=== PATIENT | male | born 1955 | race Caucasian/White ===

== ENCOUNTER 2020-12-23 19:56 | Inpatient (IN) ==
[2020-12-23] MEDS ORDERED: FUROSEMIDE 40 MG/4 ML VIAL IV ONE (20:11)
[2020-12-23] MEDS ORDERED: methylPREDNISolone SOD SUCC 125 MG/2 ML VIAL IV ONE (20:11)
[2020-12-23] MEDS ORDERED: IPRATROPIUM/ALBUTEROL 3 ML AMPUL.NEB NEB ONE (20:11)
--- NOTE | 2020-12-23 20:42 | Emergency Department Note ---
SOB HPI General Chief Complaint: Shortness of Breath/Dyspnea Stated Complaint: shortness of breath Time Seen by Provider: 12/23/20 20:11 Source: patient and EMS Mode of arrival: EMS Limitations: no limitations History of Present Illness HPI Narrative: 65-year-old male arrives by EMS for evaluation of shortness of br eath. Patient has a history of COPD this is a patient's third visit to the emergency department via EMS for increasing shortness of breath. Patient has symptoms including shortness of breath wheezing which are much worse with exertion. No fevers no chills no chest pain. Patient still smoke cigarettes. Patient is not on oxygen at home. On the last 2 visits admission to the hospital was not recommended and the patient declined. Part of the declining to admission was no bed availability here at [facility] and only hospital available for transfer was in [place]. Patient also has significant anxiety related to the shortness of breath. No fevers no chills. Related Data Home Medications Medication Instructions Recorded Confirmed cyanocobalamin (vitamin B-12) 1,000 mcg IM QMONTH 05/26/16 05/27/20 1,000 mcg/mL injection solution aspirin 81 mg tablet,delayed 81 mg PO QDAY 09/21/17 09/24/20 release albuterol sulfate 1.25 mg/3 mL 1.25 mg INHALATION TID ml 09/24/20 09/24/20 solution for nebulization benzonatate 100 mg capsule 100 mg PO TID PRN 09/24/20 09/24/20 dextromethorphan-guaifenesin ER 60 1 tab PO BID tab 09/24/20 09/24/20 mg-1,200 mg tab,extend release,12hr fluticasone furoate 200 1 inh INHALATION QDAY 09/24/20 09/24/20 mcg-vilanterol 25 mcg/dose inhalation powder hydrochlorothiazide 12.5 mg capsule 12.5 mg PO QDAY 09/24/20 09/24/20 losartan 50 mg tablet 50 mg PO QDAY 09/24/20 09/24/20 mecobalamin (vitamin B12) 1,000 1,000 mcg SUBLINGUAL QDAY 09/24/20 09/24/20 mcg disintegrating tablet,sublingual nystatin 100,000 unit/mL oral 5 ml PO TID ml 09/24/20 09/24/20 suspension Previous Rx's Medication Instructions Recorded losartan 50 mg-hydrochlorothiazide 1 tab PO QDAY #60 tab 12/10/17 12.5 mg tablet tiotropium bromide 18 mcg capsule 1 cap INHALATION QDAY #90 puff 12/10/17 with inhalation device pravastatin 10 mg tablet 10 mg PO QDAY #60 tab 12/29/17 fluticasone furoate 100 1 inh INHALATION QDAY #60 each 01/17/18 mcg-vilanterol 25 mcg/dose inhalation powder bupropion HCl 150 mg 24 hr tablet, 150 mg PO QAM #90 tab 01/18/18 extended release albuterol sulfate 90 mcg/actuation 2 puff INHALATION .q4-6h PRN #8.5 g 05/27/20 aerosol inhaler doxycycline hyclate 100 mg PO BID #14 tab 12/22/20 prednisone 20 mg PO BID #10 tab 12/22/20 Allergies Allergy/AdvReac Type Severity Reaction Status Date / Time No Known Drug Allergies Allergy Verified 12/23/20 20:05 Review of Systems ROS ROS Narrative: Narrative: All systems ED: reviewed and negative except as stated. Constitutional: Denies fever, chills and sweats Eyes: Denies vision change ENT ED: Denies throat pain and congestion Cardiovascular: Denies chest pain Respiratory: Reports shortness of breath, cough and wheezes Gastrointestinal: Denies abdominal pain, vomiting and diarrhea Genitourinary: Denies dysuria, frequency, urgency and hematuria Musculoskeletal: Denies back pain and joint pain Integumentary: Denies rash Neurological: Denies headache and dizziness Psychiatric: Reports anxiety Endocrine: Denies polydipsia and polyuria Hematological/Lymphatic: Denies easy bleeding and easy bruising PFSH Narrative Patient History Narrative: Narrative: Medical/Surgical/Family History All Active Problems History of cancer metastatic to brain (Acute) Accident due to mechanical fall without injury (Acute) Contusion of knee, left (Acute) Contusion of elbow, right (Acute) Acute exacerbation of chronic obstructive pulmonary disease (Acute) Acute exacerbation of chronic obstructive pulmonary disease (Acute) History of bilateral cataract extraction (Chronic) Chronic low back pain (Chronic) Multiple nodules of lung (Chronic) Peripheral nerve disease (Chronic) KOBI (obstructive sleep apnea) (Chronic) Nicotine dependence (Chronic) Recurrent major depression (Chronic) Hyperlipidemia (Chronic) Disorder of vitamin B12 (Chronic) Hypogonadism (Chronic) COPD (chronic obstructive pulmonary disease) (Chronic) Chronic shortness of breath (Acute) Encounter for medication refill (Acute) Depression (Chronic) Non-occlusive coronary artery disease (Acute) Lung nodule (Acute) Vitamin B12 deficiency (Acute) History of total left knee replacement (Chronic) Essential hypertension (Chronic) Obesity (Chronic) Tobacco abuse (Chronic) Osteoarthritis of left knee (Chronic) Testicular hypofunction (Chronic) Cataract (Chronic) Carpal tunnel syndrome (Chronic) Medical History Cataract Chronic low back pain Chronic shortness of breath COPD (chronic obstructive pulmonary disease) Disorder of vitamin B12 Encounter for medication refill Essential hypertension Hyperlipidemia Hypogonadism Multiple nodules of lung Nicotine dependence Obesity KOBI (obstructive sleep apnea) Osteoarthritis of left knee Peripheral nerve disease Recurrent major depression Testicular hypofunction Tobacco abuse Surgical History Carpal tunnel syndrome Bilateral Surgery Deficient knowledge of leg surgery Broke femur when he was a child. Had to put back together History of bilateral cataract extraction History of total left knee replacement August 22, 2015 Presence of left artificial knee joint Family History Other No pertinent family history Social History Smoking Status: Current every day smoker Alcohol Intake Frequency: a few times a month Substance Use: does not use Exam Narrative Narrative: Vital Signs reviewed. Constitutional: Obese, mild respiratory distress Head: Normocephalic, atraumatic Eyes: PERRLA, EOMI, no conjunctivitis Ear: Normal canals and TM's Oropharynx: moist oral mucosa, no edema, no erythema, no exudate Neck: Supple, no lymphadenopathy, no JVD Lungs: Hypnic, mildly labored, diminished breath sounds wheezes bilaterally, prolonged expiratory phase Cardiac: Tachycardic, regular rhythm, normal distal pulses, GI: Soft nontender nondistended no guarding no rebound Musculoskeletal: No tenderness, no deformities, no edema, full range of motion Back: no CVA or midline tenderness Neuro: Awake alert, cranial nerves II through XII grossly intact, no focal motor or sensory deficits Psychiatric: Normal mood and affect Skin: Warm dry no rash, cap refill less than 2 seconds General Limitations: no limitations Course Vital Signs Vital signs: Vital Signs Temperature 98.7 F 12/23/20 19:58 Pulse Rate 140 H 12/23/20 19:58 Respiratory Rate 24 H 12/23/20 19:58 Blood Pressure 173/104 12/23/20 19:58 Pulse Oximetry (%) 85 L 12/23/20 19:58 Temperature 98.7 F 12/23/20 19:58 Pulse Rate 94 H 12/23/20 23:53 Respiratory Rate 12 12/24/20 04:01 Blood Pressure 109/93 12/24/20 04:16 Pulse Oximetry (%) 96 12/23/20 23:53 [facility] MDM Narrative Medical decision making narrative: 65-year-old male returns to the emergency department for third visit in 3 nights for shortness of breath. Patient has history of COPD still smokes. Chest x-ray shows no acute process. EKG shows sinus tachycardia with no acute ischemic changes. White blood cell count elevated 18.9. Patient has had several doses of Solu-Medrol the last several days. Hemoglobin 14.7 platelets 267. Metabolic panel notable fsodium 131 chloride 91 otherwise unremarkable. Troponin negative. Recommended patient be admitted for COPD exacerbation on the last 2 visits yesterday unsuccessful as the patient did not want to be transferred to a distant hospital and there are no beds available. Patient is improved but once again has significant dyspnea with even limited exertion did admission. There are no beds available tonight at [facility]. There may be beds available in the morning and the patient will be observed in the emergency department prior to determining disposition. If no beds are available in the morning the patient would benefit from a transfer to an accepting facility for further treatment of the COPD exacerbation. Case discussed and [facility] pending disposition. Differential Diagnosis Differential Diagnosis: COPD CHF pneumonia Lab Data Result diagrams: 12/23/20 20:30 12/23/20 20:30 Labs: Lab Results 12/23/20 12/23/20 12/23/20 Range/Units 20:30 20:30 20:30 WBC 18.9 H (4.5-11.0) K/mcL RBC 4.55 L (4.63-6.08) M/mcL Hgb 14.7 (13.7-17.5) g/dL Hct 42.0 (40.1-51.0) % MCV 92.3 (80.0-100.0) fL MCH 32.3 (26.0-34.0) pg MCHC 35.0 (31.0-36.0) g/dL RDW 14.8 H (11.5-14.5) % Plt Count 264 (140-440) K/mcL MPV 8.6 (7.4-10.4) fL Seg Neutrophils % 84 H (38-78) % Lymphocytes % 14 L (15-49) % Monocytes % (Manual) 2 (1-12) % Platelet Estimate Normal (Normal) RBC Morphology Normal (Normal) Sodium 131 L (133-145) mmol/L Potassium 4.3 (3.3-5.1) mmol/L Chloride 91 L (96-108) mmol/L Carbon Dioxide 29 (22-30) mmol/L Anion Gap 11.0 (8.0-16.0) BUN 18 (8-23) mg/dL Creatinine 0.9 (0.7-1.2) mg/dL GFR Calculation 90 Glucose 99 (70-105) mg/dL Calcium 9.4 (8.6-10.4) mg/dL Total Bilirubin 0.7 (0.1-1.0) mg/dL AST 42 H (<40) U/L ALT 51 H (<40) U/L Alkaline Phosphatase 91 (39-117) U/L Troponin T 0.02 (<0.03) ng/mL NT-Pro-B Natriuret Pep 402.4 H (<125.0) pg/mL Total Protein 7.1 (5.9-8.4) gm/dL Albumin 4.0 (3.2-5.2) gm/dL Globulin 3.1 (2.2-3.7) gm/dL Albumin/Globulin Ratio 1.3 (1.0-2.3) EKG Data EKG #1: EKG attestation: Yes I reviewed and interpreted this EKG. and Yes There are no EKG findings of acute coronary syndrome EKG results narrative: EKG performed at 2028 shows sinus tachycardia rate of 113 normal axis right bundle branch block nonspecific ST changes Discharge Plan Patient/Caregiver Discharge Instructions Pt seen by [employer]/PA only: No Clinical Impression: Acute exacerbation of chronic obstructive pulmonary disease, Tobacco abuse Patient Disposition: Still a Patient Condition: Fair Follow up with: Mustapha Farrell MD [Primary Care Provider] - Prescriptions: No Action tiotropium bromide [Spiriva with HandiHaler] 18 mcg capsule, w/inhalation device 1 cap INHALATION QDAY Qty: 90 RF: 3 losartan-hydrochlorothiazide 50-12.5 mg tablet 1 tab PO QDAY Qty: 60 RF: 2 fluticasone furoate-vilanterol [Breo Ellipta] 100-25 mcg/dose blister with device 1 inh INHALATION QDAY Qty: 60 RF: 3 bupropion HCl [Wellbutrin XL] 150 mg tablet extended release 24 hr 150 mg PO QAM Qty: 90 RF: 1 pravastatin 10 mg tablet 10 mg PO QDAY Qty: 60 RF: 3 albuterol sulfate 1.25 mg/3 mL solution for nebulization 1.25 mg inhalation TID RF: 0 mecobalamin (vitamin B12) 1,000 mcg tablet,disintegrating 1,000 mcg sublingual QDAY RF: 0 Breo Ellipta 200-25 mcg/dose blister with device 1 inh inhalation QDAY RF: 0 hydrochlorothiazide 12.5 mg capsule 12.5 mg PO QDAY RF: 0 losartan 50 mg tablet 50 mg PO QDAY RF: 0 dextromethorphan-guaifenesin [Mucinex DM] 60-1,200 mg tablet extended release 12 hr 1 tab PO BID RF: 0 nystatin 100,000 unit/mL suspension 5 ml PO TID RF: 0 benzonatate [Tessalon Perles] 100 mg capsule 100 mg PO TID PRNRF: 0 cyanocobalamin (vitamin B-12) 1,000 mcg/mL solution 1,000 mcg IM QMONTH RF: 0 aspirin 81 mg tablet,delayed release (DR/EC) 81 mg PO QDAY RF: 0 albuterol sulfate [ProAir HFA] 90 mcg/actuation HFA aerosol inhaler 2 puff INHALATION .q4-6h PRN (Reason: cough, shortness of breath, wheezing) Qty: 8.5 RF: 1 prednisone 20 mg tablet 20 mg PO BID Qty: 10 RF: 0 doxycycline hyclate 100 mg tablet 100 mg PO BID Qty: 14 RF: 0
[2020-12-23 22:05] LABS: Hemoglobin 14.7 g/dL (13.7-17.5); Mean Cell Volume 92.3 fL (80.0-100.0); Mean Platelet Volume 8.6 fL (7.4-10.4); Platelet Count 264 K/mcL (140-440); RBC 4.55 M/mcL (4.63-6.08); Red Cell Distribution Width 14.8 % (11.5-14.5); WBC 18.9 K/mcL (4.5-11.0)
[2020-12-23 22:59] LABS: proBNP 402.4 pg/mL (<125.0)
[2020-12-23 23:01] LABS: ALT/SGPT 51 U/L (<40); AST/SGOT 42 U/L (<40); Albumin/Globulin Ratio 1.3 (1.0-2.3); Alkaline Phosphatase 91 U/L (39-117); Bilirubin,Total 0.7 mg/dL (0.1-1.0); Blood Urea Nitrogen 18 mg/dL (8-23); Calcium 9.4 mg/dL (8.6-10.4); Carbon Dioxide 29 mmol/L (22-30); Chloride 91 mmol/L (96-108); Globulin 3.1 gm/dL (2.2-3.7); Glomerular Filtration Rate 90; Glucose 99 mg/dL (70-105)
[2020-12-23 23:07] LABS: Lymphocytes % 14 % (15-49); Monocytes % (Manual) 2 % (1-12); Platelet Estimate NORMAL (Normal); RBC Morphology NORMAL (Normal); Segmented Neutrophils % 84 % (38-78)
--- NOTE | 2020-12-24 02:08 | XRay Report ---
CLINICAL INFORMATION: dyspnea COMPARISON: 12/23/2020 FINDINGS: Mild cardiomegaly is unchanged. Mediastinum show mild widening superiorly but this is stable and presumably represents mediastinal fat. Minimal bibasilar atelectasis noted IMPRESSION: Mild cardiomegaly and minimal bibasilar atelectasis. Interpreted and Authenticated by: Isidro Bhandari 12/24/20
--- NOTE | 2020-12-24 09:28 | Emergency Department Note ---
Course Vital Signs Vital signs: Vital Signs Temperature 98.7 F 12/23/20 19:58 Pulse Rate 140 H 12/23/20 19:58 Respiratory Rate 24 H 12/23/20 19:58 Blood Pressure 173/104 12/23/20 19:58 Pulse Oximetry (%) 85 L 12/23/20 19:58 Temperature 98.7 F 12/23/20 19:58 Pulse Rate 77 12/24/20 14:00 Respiratory Rate 12 12/24/20 13:00 Blood Pressure 135/115 12/24/20 14:00 Pulse Oximetry (%) 100 12/24/20 14:00 MDM MDM Narrative Medical decision making narrative: I assumed care from Dr. Hogue at the change of shift. I evaluated the patient in person at 9:20 AM. He is resting comfortably and awakens to verbal stimuli. He reports continued shortness of breath. He is able to speak in full sentences while on supplemental oxygen via nasal cannula but does have some increased work of breathing after prolonged conversation. I informed him of the continued search for an inpatient bed. A bed became available at our hospital. I discussed the patient's history examination and diagnostic findings with Dr. Goyal who accepted admission to his service. Lab Data Lab results reviewed: Yes I reviewed the patient's lab results. Result diagrams: 12/23/20 20:30 12/23/20 20:30 Labs: Lab Results 12/23/20 12/23/20 12/23/20 Range/Units 20:30 20:30 20:30 WBC 18.9 H (4.5-11.0) K/mcL RBC 4.55 L (4.63-6.08) M/mcL Hgb 14.7 (13.7-17.5) g/dL Hct 42.0 (40.1-51.0) % MCV 92.3 (80.0-100.0) fL MCH 32.3 (26.0-34.0) pg MCHC 35.0 (31.0-36.0) g/dL RDW 14.8 H (11.5-14.5) % Plt Count 264 (140-440) K/mcL MPV 8.6 (7.4-10.4) fL Seg Neutrophils % 84 H (38-78) % Lymphocytes % 14 L (15-49) % Monocytes % (Manual) 2 (1-12) % Platelet Estimate Normal (Normal) RBC Morphology Normal (Normal) Sodium 131 L (133-145) mmol/L Potassium 4.3 (3.3-5.1) mmol/L Chloride 91 L (96-108) mmol/L Carbon Dioxide 29 (22-30) mmol/L Anion Gap 11.0 (8.0-16.0) BUN 18 (8-23) mg/dL Creatinine 0.9 (0.7-1.2) mg/dL GFR Calculation 90 Glucose 99 (70-105) mg/dL Calcium 9.4 (8.6-10.4) mg/dL Total Bilirubin 0.7 (0.1-1.0) mg/dL AST 42 H (<40) U/L ALT 51 H (<40) U/L Alkaline Phosphatase 91 (39-117) U/L Troponin T 0.02 (<0.03) ng/mL NT-Pro-B Natriuret Pep 402.4 H (<125.0) pg/mL Total Protein 7.1 (5.9-8.4) gm/dL Albumin 4.0 (3.2-5.2) gm/dL Globulin 3.1 (2.2-3.7) gm/dL Albumin/Globulin Ratio 1.3 (1.0-2.3) ED POC Tests ED POC Tests: CARLIE - SARS Antigen Negative Discharge Plan Patient/Caregiver Discharge Instructions Pt seen by [employer]/PA only: No Clinical Impression: Acute exacerbation of chronic obstructive pulmonary disease, Tobacco abuse Patient Disposition: Xfer As Inpt ([facility]) Condition: Fair Follow up with: Mustapha Farrell MD [Primary Care Provider] - Prescriptions: No Action tiotropium bromide [Spiriva with HandiHaler] 18 mcg capsule, w/inhalation device 1 cap INHALATION QDAY Qty: 90 RF: 3 losartan-hydrochlorothiazide 50-12.5 mg tablet 1 tab PO QDAY Qty: 60 RF: 2 fluticasone furoate-vilanterol [Breo Ellipta] 100-25 mcg/dose blister with device 1 inh INHALATION QDAY Qty: 60 RF: 3 bupropion HCl [Wellbutrin XL] 150 mg tablet extended release 24 hr 150 mg PO QAM Qty: 90 RF: 1 pravastatin 10 mg tablet 10 mg PO QDAY Qty: 60 RF: 3 albuterol sulfate 1.25 mg/3 mL solution for nebulization 1.25 mg inhalation TID RF: 0 mecobalamin (vitamin B12) 1,000 mcg tablet,disintegrating 1,000 mcg sublingual QDAY RF: 0 Breo Ellipta 200-25 mcg/dose blister with device 1 inh inhalation QDAY RF: 0 hydrochlorothiazide 12.5 mg capsule 12.5 mg PO QDAY RF: 0 losartan 50 mg tablet 50 mg PO QDAY RF: 0 dextromethorphan-guaifenesin [Mucinex DM] 60-1,200 mg tablet extended release 12 hr 1 tab PO BID RF: 0 nystatin 100,000 unit/mL suspension 5 ml PO TID RF: 0 benzonatate [Tessalon Perles] 100 mg capsule 100 mg PO TID PRNRF: 0 cyanocobalamin (vitamin B-12) 1,000 mcg/mL solution 1,000 mcg IM QMONTH RF: 0 aspirin 81 mg tablet,delayed release (DR/EC) 81 mg PO QDAY RF: 0 albuterol sulfate [ProAir HFA] 90 mcg/actuation HFA aerosol inhaler 2 puff INHALATION .q4-6h PRN (Reason: cough, shortness of breath, wheezing) Qty: 8.5 RF: 1 prednisone 20 mg tablet 20 mg PO BID Qty: 10 RF: 0 doxycycline hyclate 100 mg tablet 100 mg PO BID Qty: 14 RF: 0
[2020-12-24] MEDS ORDERED: IPRATROPIUM/ALBUTEROL 3 ML AMPUL.NEB NEB ONE ×2 (11:49→16:43)
--- NOTE | 2020-12-24 14:25 | Internal Med History&Physical ---
HPI History of Present Illness Patient information: Note initiated : 12/24/20 at 2:22 pm Service Date, if different from initiated Date: [] Patient: Stanley Duval a 65 y/o M admitted on for shortness of breath. Chief Complaint: [COPD exacerbation] History of present illness: Mr. Duval is a 65 year old M no history of COPD not on home oxygen therapy, presenting with 1 week history of gradual onset, gradually worsening shortness of breath. He has been presented to our ED 3 times in the past week for this. He is complaining of respiratory wheezing as well. He is complaining of nonproductive cough. He denies any chest pain or chest discomfort. He denies any subjective fever or chills. He denies any sick contact or recent travel. He denies any noncompliance to his medications. He is currently being placed on 2 L of supplemental oxygen in the ED and admission request was placed due to oxygen dependency. Covid negative. Constitutional Constitutional: Absent chills, excessive sweating, fatigue, fever(s) and weakness EENT Eyes: Absent blurry vision, change in vision, loss of vision and other visual disturbances Ears: Absent decreased hearing and tinnitus Nose, mouth and throat: Absent abnormal hearing, dry mouth, headache(s), nasal congestion and sore throat Cardiovascular Cardiovascular: Absent chest pain, chest pain at rest, edema, irregular heart rhythm and palpatations Respiratory Respiratory: Present cough, dyspnea, dyspnea on exertion and wheezing; Absent snoring and excessive phlegm production Gastrointestinal Gastrointestinal: Absent abdominal pain, constipation, diarrhea, nausea and vomiting Musculoskeletal Musculoskeletal: Absent back pain, deformity, limited range of motion, muscle cramps, muscle weakness and numbness Integumentary Integumentary: Absent lesions, rash and wounds Neurological Neurological: Absent focal weakness, headache(s) and numbness Psychiatric Psychiatric: Absent anxiety, depression and hallucinations PFSH PFSH All Active Problems History of cancer metastatic to brain (Acute) Accident due to mechanical fall without injury (Acute) Contusion of knee, left (Acute) Contusion of elbow, right (Acute) Acute exacerbation of chronic obstructive pulmonary disease (Acute) Acute exacerbation of chronic obstructive pulmonary disease (Acute) History of bilateral cataract extraction (Chronic) Chronic low back pain (Chronic) Multiple nodules of lung (Chronic) Peripheral nerve disease (Chronic) KOBI (obstructive sleep apnea) (Chronic) Nicotine dependence (Chronic) Recurrent major depression (Chronic) Hyperlipidemia (Chronic) Disorder of vitamin B12 (Chronic) Hypogonadism (Chronic) COPD (chronic obstructive pulmonary disease) (Chronic) Chronic shortness of breath (Acute) Encounter for medication refill (Acute) Depression (Chronic) Non-occlusive coronary artery disease (Acute) Lung nodule (Acute) Vitamin B12 deficiency (Acute) History of total left knee replacement (Chronic) Essential hypertension (Chronic) Obesity (Chronic) Tobacco abuse (Chronic) Osteoarthritis of left knee (Chronic) Testicular hypofunction (Chronic) Cataract (Chronic) Carpal tunnel syndrome (Chronic) Medical History Cataract Chronic low back pain Chronic shortness of breath COPD (chronic obstructive pulmonary disease) Disorder of vitamin B12 Encounter for medication refill Essential hypertension Hyperlipidemia Hypogonadism Multiple nodules of lung Nicotine dependence Obesity KOBI (obstructive sleep apnea) Osteoarthritis of left knee Peripheral nerve disease Recurrent major depression Testicular hypofunction Tobacco abuse Surgical History Carpal tunnel syndrome Bilateral Surgery Deficient knowledge of leg surgery Broke femur when he was a child. Had to put back together History of bilateral cataract extraction History of total left knee replacement August 22, 2015 Presence of left artificial knee joint Family History Other No pertinent family history Social History (Updated 09/24/20 @ 08:17 by Crissy Frey) adopted: Yes household members: alone lives independently: Yes marital status: single education level: high school occupational status: disabled smoking status: Current every day smoker tobacco type: cigarettes per day: 30 alcohol intake frequency: a few times a month substance use type: does not use additional history: Has smoked since age 18; 1/2 PPD MEDS/ALLERGIES Home Medications and Allergies Home Medications Medication Instructions Recorded Confirmed Type cyanocobalamin (vitamin B-12) 1,000 mcg IM QMONTH 05/26/16 05/27/20 History 1,000 mcg/mL injection solution aspirin 81 mg tablet,delayed 81 mg PO QDAY 09/21/17 09/24/20 History release losartan 50 mg-hydrochlorothiazide 1 tab PO QDAY #60 tab 12/10/17 05/27/20 Rx 12.5 mg tablet tiotropium bromide 18 mcg capsule 1 cap INHALATION QDAY #90 puff 12/10/17 05/27/20 Rx with inhalation device pravastatin 10 mg tablet 10 mg PO QDAY #60 tab 12/29/17 09/24/20 Rx fluticasone furoate 100 1 inh INHALATION QDAY #60 each 01/17/18 05/27/20 Rx mcg-vilanterol 25 mcg/dose inhalation powder bupropion HCl 150 mg 24 hr tablet, 150 mg PO QAM #90 tab 01/18/18 05/27/20 Rx extended release albuterol sulfate 90 mcg/actuation 2 puff INHALATION .q4-6h PRN #8.5 g 05/27/20 05/27/20 Rx aerosol inhaler albuterol sulfate 1.25 mg/3 mL 1.25 mg INHALATION TID ml 09/24/20 09/24/20 History solution for nebulization benzonatate 100 mg capsule 100 mg PO TID PRN 09/24/20 09/24/20 History dextromethorphan-guaifenesin ER 60 1 tab PO BID tab 09/24/20 09/24/20 History mg-1,200 mg tab,extend release,12hr fluticasone furoate 200 1 inh INHALATION QDAY 09/24/20 09/24/20 History mcg-vilanterol 25 mcg/dose inhalation powder hydrochlorothiazide 12.5 mg capsule 12.5 mg PO QDAY 09/24/20 09/24/20 History losartan 50 mg tablet 50 mg PO QDAY 09/24/20 09/24/20 History mecobalamin (vitamin B12) 1,000 1,000 mcg SUBLINGUAL QDAY 09/24/20 09/24/20 History mcg disintegrating tablet,sublingual nystatin 100,000 unit/mL oral 5 ml PO TID ml 09/24/20 09/24/20 History suspension doxycycline hyclate 100 mg PO BID #14 tab 12/22/20 Rx prednisone 20 mg PO BID #10 tab 12/22/20 Rx Allergies Allergy/AdvReac Type Severity Reaction Status Date / Time No Known Drug Allergies Allergy Verified 12/23/20 20:05 EXAM Constitutional Vitals: Temp Pulse Resp BP Pulse Ox 37.1 C 77 12 135/115 100 12/23/20 19:58 12/24/20 14:00 12/24/20 13:00 12/24/20 14:00 12/24/20 14:00 General appearance: cooperative, mild distress and obese Head Head exam: Present atraumatic and normocephalic Eye Eye exam: Present EOMI and PERRL ENT ENT exam: Present mucous membranes moist, normal exam and normal external ear exam Neck Neck exam: Present normal inspection; Absent lymphadenopathy, tenderness and thyromegaly Respiratory Respiratory exam: Present decreased breath sounds, respiratory distress, rhonchi and wheezes; Absent accessory muscle use Cardiovascular Cardiovascular exam: Present normal rate and rhythm; Absent JVD GI/Abdominal GI/Abdominal exam: Present normal bowel sounds and soft; Absent organomegaly and tenderness Additional comments: obese abdomen Rectal Rectal exam: Present deferred Extremities Exam Extremities exam: Present full ROM, normal capillary refill, normal inspection and pedal edema; Absent tenderness Neurological Exam Neurological exam: Present alert, CN II-XII intact and oriented X3; Absent motor sensory deficit Psychiatric Psychiatric exam: Present normal affect and normal mood; Absent anxious and depressed Skin Skin exam: Present dry and intact DATA Data Completed and Pending Labs: Labs from last 24 hours 12/23/20 12/23/20 12/23/20 20:30 20:30 20:30 WBC 18.9 H RBC 4.55 L Hgb 14.7 Hct 42.0 MCV 92.3 MCH 32.3 MCHC 35.0 RDW 14.8 H Plt Count 264 MPV 8.6 Seg Neutrophils % 84 H Lymphocytes % 14 L Monocytes % (Manual) 2 Platelet Estimate Normal RBC Morphology Normal Sodium 131 L Potassium 4.3 Chloride 91 L Carbon Dioxide 29 Anion Gap 11.0 BUN 18 Creatinine 0.9 GFR Calculation 90 Glucose 99 Calcium 9.4 Total Bilirubin 0.7 AST 42 H ALT 51 H Alkaline Phosphatase 91 Troponin T 0.02 NT-Pro-B Natriuret Pep 402.4 H Total Protein 7.1 Albumin 4.0 Globulin 3.1 Albumin/Globulin Ratio 1.3 A/P Assessment and plan (1) Acute exacerbation of chronic obstructive pulmonary disease: Status: Acute (2) Hyperlipidemia: Status: Chronic (3) Nicotine dependence: Status: Chronic (4) Depression: Status: Chronic Qualifiers: Depression Type: major depressive disorder Major depression recurrence: recurrent Active/Remission status: in partial remission Qualified Code(s): F33.41 - Major depressive disorder, recurrent, in partial remission (5) Essential hypertension: Status: Chronic Narrative A/P Narrative: Assessment and Plans: 1. COPD exacerbation: Admit to inpatient med surg DuoNEB NEB q4hr scheduled Mucinex PRN cough Breo Solu-Medrol 125mg IV q8hr X72hrs Zithromax 250mg PO daily X 5days Supplemental oxygen via nasal cannula titrate to achieve spo2>88% 2. h/o depression: Continue home regimen of antidepressant 3. Mixed dyslipidemia: Continue statin therapy 4. Essential HTN: Continue HCTZ-Losartan from home regimen 5. Current cigarette smoker: Continue Nicotine replacement therapy 6. 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
[2020-12-24] MEDS ORDERED: ACETAMINOPHEN 325 MG TABLET PO PRN (16:32)
[2020-12-24] MEDS ORDERED: ONDANSETRON 4 MG/2 ML VIAL IV PRN (16:32)
[2020-12-24] MEDS ORDERED: traZODone HCL 50 MG TABLET PO PRN (16:32)
[2020-12-24] MEDS: NICOTINE 21 MG PATCH TOPICAL SCH (16:46)
[2020-12-24] MEDS: IPRATROPIUM/ALBUTEROL 3 ML AMPUL.NEB NEB SCH ×3 (17:30→22:11)
[2020-12-24] MEDS ORDERED: HYDROcodone/APAP (PP) 7.5/325MG TABLET (#4) PO PRN (17:35)
[2020-12-24] MEDS ORDERED: BENZONATATE 100 MG CAPSULE PO PRN (17:35)
[2020-12-24] MEDS: guaiFENesin 600 MG TAB.SR.12H PO SCH (21:31)
[2020-12-24] MEDS: DOCUSATE SODIUM 100 MG CAPSULE PO SCH (21:31)
[2020-12-24] MEDS: methylPREDNISolone SOD SUCC 125 MG/2 ML VIAL IV SCH (21:31)
[2020-12-24] MEDS: HYDROCODONE/APAP 7.5/325MG TABLET PO PRN (21:34)
[2020-12-24] MEDS: 0.9 % SODIUM CHLORIDE 10 ML SYRINGE IV SCH (21:36)
[2020-12-24] MEDS: SENNOSIDES 1 TABLET PO SCH (21:36)
[2020-12-25] MEDS: IPRATROPIUM/ALBUTEROL 3 ML AMPUL.NEB NEB SCH ×6 (02:57→23:19)
[2020-12-25] MEDS: methylPREDNISolone SOD SUCC 125 MG/2 ML VIAL IV SCH ×3 (05:00→20:59)
[2020-12-25] MEDS: 0.9 % SODIUM CHLORIDE 10 ML SYRINGE IV SCH ×3 (05:00→20:59)
[2020-12-25 07:03] LABS: Basophils # (Auto) 0.02 K/mcL (0.00-0.30); Basophils % (Auto) 0.2 % (0.0-2.0); Eosinophils # (Auto) 0.06 K/mcL (0.00-0.70); Eosinophils % (Auto) 0.5 % (0.0-7.0); Hematocrit 39.1 % (40.1-51.0); Hemoglobin 13.1 g/dL (13.7-17.5); Lymphocytes # (Auto) 2.02 K/mcL (1.50-4.80); Lymphocytes % (Auto) 16.9 % (15.5-49.0); Mean Cell Volume 95.1 fL (80.0-100.0); Mean Corpuscular HGB Conc 33.5 g/dL (31.0-36.0); Mean Platelet Volume 8.3 fL (7.4-10.4); Monocytes # (Auto) 0.48 K/mcL (0.10-0.90); Neutrophils % (Auto) 78.4 % (38.0-78.0); Platelet Count 172 K/mcL (140-440); RBC 4.11 M/mcL (4.63-6.08); Red Cell Distribution Width 14.6 % (11.5-14.5)
[2020-12-25 08:00] LABS: ALT/SGPT 46 U/L (<40); AST/SGOT 35 U/L (<40); Albumin 2.9 gm/dL (3.2-5.2); Alkaline Phosphatase 80 U/L (39-117); Bilirubin,Total 0.8 mg/dL (0.1-1.0); Blood Urea Nitrogen 18 mg/dL (8-23); Calcium 8.8 mg/dL (8.6-10.4); Carbon Dioxide 25 mmol/L (22-30); Chloride 94 mmol/L (96-108); Globulin 2.9 gm/dL (2.2-3.7); Glomerular Filtration Rate 100; Glucose 103 mg/dL (70-105)
[2020-12-25] MEDS: PANTOPRAZOLE 40 MG TABLET PO SCH (08:36)
[2020-12-25] MEDS: FUROSEMIDE 20 MG TABLET PO SCH (09:27)
[2020-12-25] MEDS: ENOXAPARIN 40 MG/0.4 ML SYRINGE SQ SCH (09:27)
[2020-12-25] MEDS: guaiFENesin 600 MG TAB.SR.12H PO SCH ×2 (09:27→20:57)
[2020-12-25] MEDS: ASPIRIN 81 MG TAB.CHEW PO SCH (09:28)
[2020-12-25] MEDS: SIMVASTATIN 10 MG TABLET PO SCH (09:28)
[2020-12-25] MEDS: AZITHROMYCIN 250 MG TABLET PO SCH (09:28)
[2020-12-25] MEDS: CYANOCOBALAMIN (VITAMIN B-12) 500 MCG TABLET PO SCH (09:28)
[2020-12-25] MEDS: buPROPion 150 MG TAB.XL.24H PO SCH (09:28)
[2020-12-25] MEDS: DOCUSATE SODIUM 100 MG CAPSULE PO SCH ×2 (09:29→21:00)
[2020-12-25] MEDS: NICOTINE 21 MG PATCH TOPICAL SCH (10:04)
[2020-12-25] MEDS: FLUTICASONE FUROATE VILANTEROL INH SCH (10:17)
[2020-12-25] MEDS: TIOTROPIUM BROMIDE 18 MCG INHALANT INH SCH (10:17)
[2020-12-25] MEDS ORDERED: LORazepam 1 MG TABLET PO ONE (10:51)
[2020-12-25] MEDS ORDERED: LORazepam 1 MG TABLET PO PRN (12:56)
--- NOTE | 2020-12-25 14:32 | Internal Med Progress Note ---
SUBJECTIVE Subjective Patient information: Note initiated : 12/25/20 at 2:27 pm Service Date, if different from initiated Date: [] Patient: Stanley Duval a 65 y/o M admitted on 12/24/20 for shortness of breath. Chief Complaint: [COPD exacerbation] History of present illness: Mr. Duval is a 65 year old M no history of COPD not on home oxygen therapy, presenting with 1 week history of gradual onset, gradually worsening shortness of breath. He has been presented to our ED 3 times in the past week for this. He is complaining of respiratory wheezing as well. He is complaining of nonproductive cough. He denies any chest pain or chest discomfort. He denies any subjective fever or chills. He denies any sick contact or recent travel. He denies any noncompliance to his medications. He is currently being placed on 2 L of supplemental oxygen in the ED and admission request was placed due to oxygen dependency. Covid negative. 12/25: Been on room air since earlier this morning. Patient still c/o dyspnea with air hunger. c/o nonproductive cough. c/o wheezing. Denies chest pain or palpitation. Denies fever, chills, or sweating. Denies general body weakness. c/o anxiety. Constitutional Vitals: Vital Signs Temp Pulse Resp BP Pulse Ox 36.2 C 99 H 24 H 109/75 95 12/25/20 12:00 12/25/20 12:00 12/25/20 12:00 12/25/20 12:00 12/25/20 12:00 Period Temp Pulse Resp BP Sys/[place] Pulse Ox Last 24 Hr 36.2 C-36.7 C 33-103 16-26 91-158/57-117 92-99 Intake and Output 12/25/20 12/25/20 12/25/20 05:59 13:59 21:59 Intake Total 1800 960 Output Total 650 Balance 1150 960 Intake & Output: Intake & Output 12/25/20 12/25/20 12/25/20 05:59 13:59 21:59 Intake Total 1800 960 Output Total 650 Balance 1150 960 Intake: Oral 1800 960 Output: Void Amount 650 Other: Meal Breakfast Percent of Meal Consumed 100% Urine Appearance Clear Urine Color Bright Yellow # Voids 1 1 General appearance: cooperative, no acute distress and obese Head Head exam: Present atraumatic and normocephalic Eye Eye exam: Present EOMI and PERRL ENT ENT exam: Present mucous membranes moist, normal exam and normal external ear exam Neck Neck exam: Present normal inspection; Absent lymphadenopathy, tenderness and thyromegaly Respiratory Respiratory exam: Present wheezes; Absent accessory muscle use and respiratory distress Cardiovascular Cardiovascular exam: Present normal rate and rhythm; Absent JVD GI/Abdominal GI/Abdominal exam: Present normal bowel sounds and soft; Absent organomegaly and tenderness Additional comments: obese abdomen Rectal Rectal exam: Present deferred Extremities Exam Extremities exam: Present full ROM, normal capillary refill and normal inspection; Absent tenderness Neurological Exam Neurological exam: Present alert, CN II-XII intact and oriented X3; Absent motor sensory deficit Psychiatric Psychiatric exam: Present normal affect and normal mood; Absent anxious and depressed Skin Skin exam: Present dry and intact Additional comments: Dilated capillaries on face and chest wall OBJ DATA Labs CBC & Chem 7: 12/25/20 05:26 12/25/20 05:26 Labs: Abnormal Lab Results 12/25/20 12/25/20 12/23/20 05:26 05:26 20:30 WBC 12.0 H RBC 4.11 L Hgb 13.1 L Hct 39.1 L RDW 14.6 H Neut % (Auto) 78.4 H Seg Neutrophils % Lymphocytes % Absolute Neutrophils 9.37 H Sodium 131 L 131 L Chloride 94 L 91 L AST 42 H ALT 46 H 51 H NT-Pro-B Natriuret Pep 402.4 H Total Protein 5.8 L Albumin 2.9 L 12/23/20 20:30 WBC 18.9 H RBC 4.55 L Hgb Hct RDW 14.8 H Neut % (Auto) Seg Neutrophils % 84 H Lymphocytes % 14 L Absolute Neutrophils Sodium Chloride AST ALT NT-Pro-B Natriuret Pep Total Protein Albumin Meds: Medications Acetaminophen (Acetaminophen 325 Mg Tablet) 650 mg PO Q6HP PRN; Protocol PRN Reason: Per Pain Protocol/Fever > 101 Hydrocodone Bitart/Acetaminophen (Hydrocodone/Apap 7.5/325mg Tablet) 1 tab PO Q6HP PRN; Protocol PRN Reason: Per Pain Protocol Last Admin: 12/24/20 21:34 Dose: 1 tab Documented by: Albuterol/Ipratropium (Ipratropium/Albuterol 3 Ml Ampul.Neb) 3 ml NEB Q4HRT [facility] Last Admin: 12/25/20 11:53 Dose: 3 ml Documented by: Aspirin (Aspirin 81 Mg Tab.Chew) 81 mg PO DAILY [facility] Last Admin: 12/25/20 09:28 Dose: 81 mg Documented by: Azithromycin (Azithromycin 250 Mg Tablet) 250 mg PO DAILY [facility]; Protocol Stop: 12/29/20 09:01 Last Admin: 12/25/20 09:28 Dose: 250 mg Documented by: Benzonatate (Benzonatate 100 Mg Capsule) 100 mg PO TIDP PRN PRN Reason: Dyspnea Bupropion HCl (Bupropion 150 Mg Tab.Xl.24h) 150 mg PO QAM [facility] Last Admin: 12/25/20 09:28 Dose: 150 mg Documented by: Cyanocobalamin (Cyanocobalamin (Vitamin B-12) 500 Mcg Tablet) 1,000 mcg PO DAILY [facility] Last Admin: 12/25/20 09:28 Dose: 1,000 mcg Documented by: Docusate Sodium (Docusate Sodium 100 Mg Capsule) 100 mg PO BID [facility] Last Admin: 12/25/20 09:29 Dose: 100 mg Documented by: Enoxaparin Sodium (Enoxaparin 40 Mg/0.4 Ml Syringe) 40 mg SQ DAILY [facility] Last Admin: 12/25/20 09:27 Dose: 40 mg Documented by: Furosemide (Furosemide 20 Mg Tablet) 20 mg PO QDAY [facility] Last Admin: 12/25/20 09:27 Dose: 20 mg Documented by: Guaifenesin (Guaifenesin 600 Mg Tab.Sr.12h) 600 mg PO BID [facility] Last Admin: 12/25/20 09:27 Dose: 600 mg Documented by: Lorazepam (Lorazepam 1 Mg Tablet) 1 mg PO Q6HP PRN PRN Reason: ANXIETY/SEDATION Methylprednisolone Sodium Succinate (Methylprednisolone Sod Succ 125 Mg/2 Ml Vial) 125 mg IV Q8 [facility] Stop: 12/27/20 14:00 Last Admin: 12/25/20 14:00 Dose: 125 mg Documented by: Nicotine (Nicotine 21 Mg Patch) 21 mg TOPICAL DAILY@1000 [facility] Last Admin: 12/25/20 10:04 Dose: 21 mg Documented by: Ondansetron HCl (Ondansetron 4 Mg/2 Ml Vial) 4 mg IV Q6HP PRN PRN Reason: Nausea And Vomiting Pantoprazole Sodium (Pantoprazole 40 Mg Tablet) 40 mg PO QAMAC [facility] Last Admin: 12/25/20 08:36 Dose: 40 mg Documented by: Fluticasone Furoate- Vilanterol [Breo Ellipta] 200 Mcg-25 Mcg Inhaler 1 dose INH DAILY [facility] Last Admin: 12/25/20 10:17 Dose: Not Given Documented by: Senna (Sennosides 1 Tablet) 2 tab PO HS [facility] Last Admin: 12/24/20 21:36 Dose: Not Given Documented by: Simvastatin (Simvastatin 10 Mg Tablet) 5 mg PO DAILY [facility] Last Admin: 12/25/20 09:28 Dose: 5 mg Documented by: Sodium Chloride (0.9 % Sodium Chloride 10 Ml Syringe) 10 ml IV Q8 [facility] Last Admin: 12/25/20 14:10 Dose: 10 ml Documented by: Tiotropium [place] (Tiotropium [place] 18 Mcg Inhalant) 18 mcg INH DAILY [facility] Last Admin: 12/25/20 10:17 Dose: Not Given Documented by: Trazodone HCl (Trazodone Hcl 50 Mg Tablet) 25 mg PO HSP PRN PRN Reason: Insomnia Last Admin: 12/24/20 22:57 Dose: 25 mg Documented by: A/P Assessment and plan (1) Acute exacerbation of chronic obstructive pulmonary disease: Status: Acute (2) Obesity: Status: Chronic Qualifiers: Obesity type: due to excess calories Obesity severity: non-morbid Qualified Code(s): E66.09 - Other obesity due to excess calories (3) Essential hypertension: Status: Chronic (4) Anemia, normocytic normochromic: Status: Acute (5) Hyperlipidemia: Status: Chronic (6) Recurrent major depression: Status: Chronic (7) Tobacco abuse: Status: Chronic Narrative A/P Narrative: Assessment and Plans: 1. COPD exacerbation: Stays in inpatient med surg DuoNEB NEB q4hr scheduled Mucinex PRN cough Breo Solu-Medrol 125mg IV q8hr X72hrs Zithromax 250mg PO daily X 5days Supplemental oxygen via nasal cannula titrate to achieve spo2>88% 2. h/o depression: Continue home regimen of antidepressant 3. Mixed dyslipidemia: Continue statin therapy 4. Essential HTN: Continue HCTZ-Losartan from home regimen 5. 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 Anemia, normocytic normochromic: cbc w/ auto diff in the morning to trend H/H; transfuse pRBC if hemoglobin <7.0, active bleeding, or symptomatic GI ppx: Protonix PO DVT ppx: Lovenox Code status: Full Prognosis: guarded Disposition: inpatient med surg Time Spent With Patient Time: Total time spent is greater than 50% in coordination of care (as documented) at patient's floor/unit and/or counseling patient: Total time spent with greater than 50% in coordination of care (as documented) at patient's floor/unit and/or counseling patient:: 15 - 24 minutes QUALITY VTE Deep Vein Thrombosis/Pulmonary Embolism Present on Admission: No
[2020-12-25] MEDS: HYDROCODONE/APAP 7.5/325MG TABLET PO PRN (20:57)
[2020-12-25] MEDS: SENNOSIDES 1 TABLET PO SCH (20:59)
[2020-12-26] MEDS: IPRATROPIUM/ALBUTEROL 3 ML AMPUL.NEB NEB SCH ×3 (03:04→12:02)
[2020-12-26] MEDS: methylPREDNISolone SOD SUCC 125 MG/2 ML VIAL IV SCH ×2 (05:06→16:04)
[2020-12-26] MEDS: 0.9 % SODIUM CHLORIDE 10 ML SYRINGE IV SCH ×2 (05:06→16:03)
[2020-12-26] MEDS: PANTOPRAZOLE 40 MG TABLET PO SCH (07:18)
[2020-12-26 07:54] LABS: Basophils # (Auto) 0.04 K/mcL (0.00-0.30); Basophils % (Auto) 0.3 % (0.0-2.0); Eosinophils # (Auto) 0 K/mcL (0.00-0.70); Eosinophils % (Auto) 0 % (0.0-7.0); Hematocrit 34.7 % (40.1-51.0); Lymphocytes # (Auto) 0.72 K/mcL (1.50-4.80); Lymphocytes % (Auto) 4.8 % (15.5-49.0); Mean Cell Volume 93.8 fL (80.0-100.0); Mean Corpuscular HGB Conc 34.6 g/dL (31.0-36.0); Mean Platelet Volume 8.7 fL (7.4-10.4); Monocytes # (Auto) 0.42 K/mcL (0.10-0.90); Monocytes % (Auto) 2.8 % (1.0-12.0); Neutrophils % (Auto) 92.1 % (38.0-78.0); Platelet Count 171 K/mcL (140-440); Red Cell Distribution Width 14.7 % (11.5-14.5); WBC 14.9 K/mcL (4.5-11.0)
[2020-12-26 08:21] LABS: ALT/SGPT 41 U/L (<40); AST/SGOT 22 U/L (<40); Albumin/Globulin Ratio 1.2 (1.0-2.3); Alkaline Phosphatase 82 U/L (39-117); Bilirubin,Total 0.4 mg/dL (0.1-1.0); Blood Urea Nitrogen 21 mg/dL (8-23); Calcium 8.8 mg/dL (8.6-10.4); Carbon Dioxide 25 mmol/L (22-30); Chloride 100 mmol/L (96-108); Globulin 2.5 gm/dL (2.2-3.7); Glomerular Filtration Rate 100; Glucose 147 mg/dL (70-105)
[2020-12-26] MEDS: ENOXAPARIN 40 MG/0.4 ML SYRINGE SQ SCH (10:36)
[2020-12-26] MEDS: AZITHROMYCIN 250 MG TABLET PO SCH (10:37)
[2020-12-26] MEDS: guaiFENesin 600 MG TAB.SR.12H PO SCH (10:37)
[2020-12-26] MEDS: NICOTINE 21 MG PATCH TOPICAL SCH (10:37)
[2020-12-26] MEDS: SIMVASTATIN 10 MG TABLET PO SCH (10:37)
[2020-12-26] MEDS: buPROPion 150 MG TAB.XL.24H PO SCH (10:38)
[2020-12-26] MEDS: HYDROCODONE/APAP 7.5/325MG TABLET PO PRN ×2 (10:39→17:30)
[2020-12-26] MEDS: DOCUSATE SODIUM 100 MG CAPSULE PO SCH (10:39)
[2020-12-26] MEDS: ASPIRIN 81 MG TAB.CHEW PO SCH (10:40)
[2020-12-26] MEDS: FLUTICASONE FUROATE VILANTEROL INH SCH (10:40)
[2020-12-26] MEDS: CYANOCOBALAMIN (VITAMIN B-12) 500 MCG TABLET PO SCH (10:40)
[2020-12-26] MEDS: TIOTROPIUM BROMIDE 18 MCG INHALANT INH SCH (10:41)
[2020-12-26] MEDS: FUROSEMIDE 20 MG TABLET PO SCH (10:43)
--- NOTE | 2020-12-26 11:41 | Discharge Summary ---
Discharge Provider Provider Patient information: Note initiated : 12/26/20 at 11:38 am Service Date, if different from initiated Date: [] Patient: Stanley Duval 65 y/o M admitted on 12/24/20 for shortness of breath. Chief Complaint: [COPD exacerbation] Date of admission: 12/24/20 15:49 Discharge date: 12/26/20 Primary care physician: Mustapha Farrell MD Consults: 12/24/20 Consult to Physician [CONS] Stat Comment: Consulting Provider: Artur Perales Reason For Exam: Physician to Consult Discharge Meds Discharge Medications Home Medications aspirin 81 mg tablet,delayed release 81 mg PO QDAY 09/21/17 [History Confirmed 12/24/20 Last Taken 12/24/20 09:00] tiotropium bromide 18 mcg capsule with inhalation device 1 cap INHALATION QDAY #90 puff 12/10/17 [Rx Confirmed 12/24/20 Last Taken 12/23/20] pravastatin 10 mg tablet 10 mg PO QDAY #60 tab 12/29/17 [Rx Confirmed 12/24/20 Last Taken 12/22/20] bupropion HCl 150 mg 24 hr tablet, extended release 150 mg PO QAM #90 tab 01/18/18 [Rx Confirmed 12/24/20 Last Taken 12/23/20] albuterol sulfate 90 mcg/actuation aerosol inhaler 2 puff INHALATION .q4-6h PRN #8.5 g 05/27/20 [Rx Confirmed 12/24/20 Last Taken 12/23/20 21:00] albuterol sulfate 1.25 mg/3 mL solution for nebulization 1.25 mg INHALATION TID ml 09/24/20 [History Confirmed 12/24/20 Last Taken 12/23/20 21:00] benzonatate 100 mg capsule 100 mg PO TID PRN 09/24/20 [History Confirmed 12/24/20 Last Taken 12/17/20] dextromethorphan-guaifenesin ER 60 mg-1,200 mg tab,extend release,12hr 1 tab PO BID tab 09/24/20 [History Confirmed 12/24/20 Last Taken 12/22/20] fluticasone furoate 200 mcg-vilanterol 25 mcg/dose inhalation powder 1 inh INHALATION QDAY 09/24/20 [History Confirmed 12/24/20 Last Taken 12/23/20 09:00] hydrochlorothiazide 12.5 mg capsule 12.5 mg PO QDAY 09/24/20 [History Confirmed 12/24/20 Last Taken 12/22/20] losartan 50 mg tablet 50 mg PO QDAY 09/24/20 [History Confirmed 12/24/20 Last Taken 12/22/20] mecobalamin (vitamin B12) 1,000 mcg disintegrating tablet,sublingual 1,000 mcg SUBLINGUAL QDAY 09/24/20 [History Confirmed 12/24/20 Last Taken 12/23/20] prednisone 20 mg PO BID #10 tab 12/22/20 [Rx Confirmed 12/24/20 Last Taken Unknown] furosemide [Lasix] 20 mg PO QDAY 12/24/20 [History Confirmed 12/24/20 Last Taken 12/20/20] hydrocodone-acetaminophen 1 tab PO Q6H PRN 12/24/20 [History Confirmed 12/24/20 Last Taken 12/23/20] azithromycin 250 mg PO DAILY #3 tab 12/26/20 [Rx Last Taken Unknown] nicotine 21 mg TOPICAL DAILY@1000 #14 ea 12/26/20 [Rx Last Taken Unknown] COURSE Hospital Course Hospital course: She was admitted on December 24, 2020 for COPD with exacerbation with associated acute on chronic respiratory failure. He was started on supplemental oxygen, as well as bronchodilator, IV steroid Solu-Medrol, and azithromycin as antibiotics. His oxygen requirement has weaned down to 2 L/min by day 3 hospitalizations. Respiratory therapist evaluated the patient and determined that patient is a candidate for home oxygen's. Patient's which clinical stability on December 26, 2020. As such, decision made to discharge patient with prescriptions of the bronchodilators, prednisone, and azithromycin was given to him. Follow-up with PCP in 1 to 2 weeks made for him. Home oxygen arranged for the patient. All questions were answered prior to patient being physically discharged Discharge diagnosis: COPD exacerbation Time Spent with Patient Time attestation: Total time spent providing and/or coordinating discharge services: She was admitted on December 24, 2020 for COPD with exacerbation with associated acute on chronic respiratory failure. He was started on supplemental oxygen, as well as bronchodilator, IV steroid Solu-Medrol, and azithromycin as antibiotics. His oxygen requirement has weaned down to 2 L/min by day 3 hospitalizations. Respiratory therapist evaluated the patient and determined that patient is a candidate for home oxygen's. Patient's which clinical stability on December 26, 2020. As such, decision made to discharge patient with prescriptions of the bronchodilators, prednisone, and azithromycin was given to him. Follow-up with PCP in 1 to 2 weeks made for him. Home oxygen arranged for the patient. All questions were answered prior to patient being physically discharged. EXAM Constitutional Vitals: Temp Pulse Resp BP Pulse Ox 36.6 C 87 16 153/93 94 12/26/20 07:21 12/26/20 07:32 12/26/20 07:32 12/26/20 07:21 12/26/20 07:32 General appearance: cooperative and no acute distress Head Head exam: Present atraumatic and normocephalic Eye Eye exam: Present EOMI and PERRL ENT ENT exam: Present mucous membranes moist, normal exam and normal external ear exam Additional comments: Nasal cannula in place Neck Neck exam: Present normal inspection; Absent lymphadenopathy, tenderness and thyromegaly Respiratory Respiratory exam: Present wheezes; Absent accessory muscle use and respiratory distress Cardiovascular Cardiovascular exam: Present normal rate and rhythm; Absent JVD GI/Abdominal GI/Abdominal exam: Present normal bowel sounds and soft; Absent organomegaly and tenderness Rectal Rectal exam: Present deferred Extremities Exam Extremities exam: Present full ROM, normal capillary refill and normal inspection; Absent tenderness Neurological Exam Neurological exam: Present alert, CN II-XII intact and oriented X3; Absent motor sensory deficit Psychiatric Psychiatric exam: Present normal affect and normal mood; Absent anxious and depressed Skin Skin exam: Present dry and intact Discharge Data Data Completed and Pending Labs on day of discharge: Labs from last 24 hours 12/26/20 12/26/20 05:26 05:26 WBC 14.9 H RBC 3.70 L Hgb 12.0 L Hct 34.7 L MCV 93.8 MCH 32.4 MCHC 34.6 RDW 14.7 H Plt Count 171 MPV 8.7 Neut % (Auto) 92.1 H Lymph % (Auto) 4.8 L [place] % (Auto) 2.8 Eos % (Auto) 0 Baso % (Auto) 0.3 Lymph # (Auto) 0.72 L [place] # (Auto) 0.42 Eos # (Auto) 0 Baso # (Auto) 0.04 Absolute Neutrophils 13.74 H Sodium 137 Potassium 4.5 Chloride 100 Carbon Dioxide 25 Anion Gap 12.0 BUN 21 Creatinine 0.7 GFR Calculation 100 Glucose 147 H Calcium 8.8 Total Bilirubin 0.4 AST 22 ALT 41 H Alkaline Phosphatase 82 Total Protein 5.5 L Albumin 3.0 L Globulin 2.5 Albumin/Globulin Ratio 1.2 Discharge Plan Patient/Caregiver Discharge Instructions Activity: increase activity as tolerated Diet: Consistent Carbohydrate Prescriptions: New azithromycin 250 mg Tablet 250 mg PO DAILY Qty: 3 RF: 0 nicotine 21 mg/24 hr Patch 24 Hour 21 mg topical DAILY@1000 Qty: 14 RF: 0 Continued tiotropium bromide [Spiriva with HandiHaler] 18 mcg capsule, w/inhalation device 1 cap INHALATION QDAY Qty: 90 RF: 3 bupropion HCl [Wellbutrin XL] 150 mg tablet extended release 24 hr 150 mg PO QAM Qty: 90 RF: 1 pravastatin 10 mg tablet 10 mg PO QDAY Qty: 60 RF: 3 albuterol sulfate 1.25 mg/3 mL solution for nebulization 1.25 mg inhalation TID RF: 0 mecobalamin (vitamin B12) 1,000 mcg tablet,disintegrating 1,000 mcg sublingual QDAY RF: 0 Breo Ellipta 200-25 mcg/dose blister with device 1 inh inhalation QDAY RF: 0 hydrochlorothiazide 12.5 mg capsule 12.5 mg PO QDAY RF: 0 losartan 50 mg tablet 50 mg PO QDAY RF: 0 dextromethorphan-guaifenesin [Mucinex DM] 60-1,200 mg tablet extended release 12 hr 1 tab PO BID RF: 0 benzonatate [Tessalon Perles] 100 mg capsule 100 mg PO TID PRN (Reason: Dyspnea) RF: 0 aspirin 81 mg tablet,delayed release (DR/EC) 81 mg PO QDAY RF: 0 albuterol sulfate [ProAir HFA] 90 mcg/actuation HFA aerosol inhaler 2 puff INHALATION .q4-6h PRN (Reason: cough, shortness of breath, wheezing) Qty: 8.5 RF: 1 prednisone 20 mg tablet 20 mg PO BID Qty: 10 RF: 0 furosemide [Lasix] 20 mg Tablet 20 mg PO QDAY RF: 0 hydrocodone-acetaminophen 7.5-325 mg Tablet 1 tab PO Q6H PRN (Reason: Pain) RF: 0 Discontinued doxycycline hyclate 100 mg tablet 100 mg PO BID Qty: 14 RF: 0 dexamethasone 4 mg Tablet 4 mg PO BID RF: 0 Follow Up Plan Follow up with: Mustapha Farrell MD [Primary Care Provider] - Patient Disposition: Home, Self-Care Prognosis: Fair Rehab Potential: Good I certify that the patient requires SNF services: No Overall status at discharge: patient is progressing back to baseline Discharge Orders: Discharge Order (Routine); Ordered 12/26/20 Ordered By: Ammon BLAIR VTE Deep Vein Thrombosis/Pulmonary Embolism Present on Admission: No
--- NOTE | 2021-01-06 08:37 | EKG ---
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
== END 2020-12-26 17:40 | disposition home or self-care (01) | DRG 190 ==
LOC: ED 19:56 → MEDSUR 12-24 15:49
PROVIDERS: ADMIT Internal Medicine; ATTEND Internal Medicine